=== PATIENT | male | born 1970 | race American Indian/Alaskan Native ===

== ENCOUNTER 2017-08-13 05:10 | Emergency (ER) | payer BC ==
[2017-08-13 05:10] VITALS: BMI 37.3
[2017-08-13 05:19] VITALS: BP 158/92; PULSE 82; RESP 18; TEMP 98.6; O2SAT 99
[2017-08-13] MEDS ORDERED: Ciprofloxacin/Dexamethasone OTIC SUSP AD STA (05:32)
[2017-08-13] MEDS ORDERED: Amoxicillin-Clav 875-125 mg Tab PO STA (05:32)
[2017-08-13] MEDS ORDERED: TraMADol/Apap 37.5/325 mg Tab PO STA (05:33)
--- NOTE | 2017-08-13 05:39 | ED PDOC ---
Arrival/HPI - General Chief Complaint: ENT Problem Time Seen by Provider: 08/13/17 05:25 Historian: Patient - History of Present Illness Narrative History of Present Illness (Text): 08/13/17 05:39 A 47 year old male presents to the emergency department complaining of ear pain. Patient reports left ear pain and now right ear is hurting. Patient reports pain developed after travelling on plane. Patient denies any fever, chills, shortness of breath, cough, headache or any other complaints at this time. Symptom Onset: Sudden Symptom Course: Unchanged Activities at Onset: Rest Associated Symptoms (Text): none Past Medical History - Provider Review Nursing Documentation Reviewed: Yes - Infectious Disease Hx of Infectious Diseases: None - Cardiac Hx Hypertension: Yes Hx Pacemaker: No - Pulmonary Hx Sleep Apnea: Yes - Endocrine/Metabolic Hx Diabetes Mellitus Type 2: Yes - Hematological/Oncological Hx Blood Transfusions: No Hx Blood Transfusion Reaction: No - Musculoskeletal/Rheumatological Hx Musculoskeletal Disorders: Yes (SHOULDERS) - Psychiatric Hx Emotional Abuse: No Hx Physical Abuse: No Hx Substance Use: No - Surgical History Hx Cardiac Catheterization: Yes (x 2) - Anesthesia Hx Anesthesia Reactions: No Hx Malignant Hyperthermia: No - Suicidal Assessment Feels Threatened In Home Enviroment: No Family/Social History - Physician Review Nursing Documentation Reviewed: Yes Family/Social History: No Known Family HX Smoking Status: Former Smoker Hx Alcohol Use: No (SOCIAL) Hx Substance Use: No Allergies/Home Meds Allergies/Adverse Reactions: Allergies No Known Allergies Allergy (Verified 01/16/16 02:32) Home Medications: Home Meds Medication Instructions Recorded Confirmed Aspirin [Aspirin EC] 81 mg PO QPM 01/04/16 08/13/17 Atorvastatin [Lipitor] 80 mg PO DIN 01/04/16 08/13/17 Clopidogrel [Plavix] 75 mg PO QPM 01/04/16 08/13/17 Losartan-Hctz 50-12.5 mg Tab 1 tab PO DAILY 01/05/16 08/13/17 Review of Systems - Physician Review All systems were reviewed & negative as marked: Yes - Review of Systems Constitutional: absent: Fevers, Other (chills) ENT: Other (b/l ear pain) Respiratory: absent: SOB, Cough Neurological: absent: Headache Physical Exam Vital Signs Reviewed: Yes Vital Signs Temp Pulse Resp BP Pulse Ox 08/13/17 05:13 98.6 F 82 18 158/92 H 99 Temperature: Afebrile Blood Pressure: Hypertensive Pulse: Regular Respiratory Rate: Normal Appearance: Positive for: Well-Appearing, Non-Toxic, Comfortable Pain Distress: None Mental Status: Positive for: Alert and Oriented X 3 - Systems Exam Head: Present: Atraumatic, Normocephalic Pupils: Present: PERRL Extroacular Muscles: Present: EOMI Conjunctiva: Present: Normal Ears: Present: Other (left canal boggy with fluid; TM infected b/l) Mouth: Present: Moist Mucous Membranes Neck: Present: Normal Range of Motion Respiratory/Chest: Present: Clear to Auscultation, Good Air Exchange. No: Respiratory Distress, Accessory Muscle Use Cardiovascular: Present: Regular Rate and Rhythm, Normal S1, S2. No: Murmurs Abdomen: Present: Normal Bowel Sounds. No: Tenderness, Distention, Peritoneal Signs Back: Present: Normal Inspection Upper Extremity: Present: Normal Inspection. No: Cyanosis, Edema Lower Extremity: Present: Normal Inspection. No: Edema Neurological: Present: GCS=15, CN II-XII Intact, Speech Normal Skin: Present: Warm, Dry, Normal Color. No: Rashes Psychiatric: Present: Alert, Oriented x 3, Normal Insight, Normal Concentration Medical Decision Making ED Course and Treatment: 08/13/17 05:36 Impression: A 47 year old male with bilateral ear pain. Plan: -- Augmentin, Ciprodex Otic, Ultracet -- Reassess and disposition Prior Visits: Notes and results from previous visits were reviewed. Patient was last seen in the emergency department on 01/16/16 for evaluation of upper left molar pain. Progress Notes: On re-evaluation, patient feels better and is in no acute distress. Patient in agreement with plan to be discharged home. Patient is stable for discharge. Patient was instructed to follow up with physician or return if symptoms worsen or new concerning symptoms arise. - Medication Orders Current Medication Orders: Discontinued Medications Amoxicillin/Clavulanate Potassium (Augmentin 875 Mg-125 Mg Tab) 1 tab PO STAT STA PRN Reason: Protocol Stop: 08/13/17 05:33 Last Admin: 08/13/17 05:46 Dose: 1 tab Ciprofloxacin/Dexamethasone (Ciprodex Otic) 0 drop AD STAT STA Stop: 08/13/17 05:33 Last Admin: 08/13/17 05:50 Dose: 2 % Tramadol/Acetaminophen (Ultracet 37.5/325 Mg) 1 tab PO ONCE STA Stop: 08/13/17 05:34 Last Admin: 08/13/17 05:46 Dose: 1 tab MAR Pain Assessment Document 08/13/17 05:46 DARIAN (Rec: 08/13/17 05:50 DARIAN [id number]) Pain Reassessment Is this a pain reassessment? No - Scribe Statement The provider has reviewed the documentation as recorded by the Shena Kent Provider Scribe Attestation: All medical record entries made by the Scribe were at my direction and personally dictated by me. I have reviewed the chart and agree that the record accurately reflects my personal performance of the history, physical exam, medical decision making, and the department course for this patient. I have also personally directed, reviewed, and agree with the discharge instructions and disposition. Disposition/Present on Arrival - Present on Arrival Any Indicators Present on Arrival: No History of DVT/PE: No History of Uncontrolled Diabetes: No Urinary Catheter: No History of Decub. Ulcer: No History Surgical Site Infection Following: None - Disposition Have Diagnosis and Disposition been Completed?: Yes Diagnosis: Otitis externa, Otitis media Disposition: HOME/ ROUTINE Disposition Time: 06:00 Condition: GOOD Discharge Instructions (ExitCare): Otitis Externa (ED), Otitis Media (ED) Additional Instructions: ear drop 2 drop both ears four times a day for 7 days Prescriptions: Amoxicillin/Clavulanate [Augmentin 500 MG-125 MG] 1 tab PO BID #20 tab Tramadol HCl [Ultram] 50 mg PO QID #8 tab Referrals: Sonido Rey DO [Staff Provider] - Follow up with primary Forms: [employer] (Portuguese)
== END 2017-08-13 05:53 | disposition home or self-care (01) ==
LOC: ED 05:10
DX: H66.93 Otitis media, unspecified, bilateral (principal); H60.93 Unspecified otitis externa, bilateral; Z87.891 Personal history of nicotine dependence